=== PATIENT | female | born 1940 | race Caucasian/White ===

== ENCOUNTER 2020-09-23 10:57 | Emergency (ER) | payer MEDICARE, OTHER, SELFPAY ==
[2020-09-23 11:20] VITALS: BP 120/61; PULSE 64; RESP 18; TEMP 36.5; O2SAT 97; BMI 23.3
--- NOTE | 2020-09-23 11:23 | CT_ITS ---
WS: [id number] CT HEAD NONCONTRAST HISTORY: head injury, fall TECHNIQUE: Contiguous axial imaging performed through the brain in 2.5 mm imaging. Bone and soft tiss ue windows. Sagittal and coronal reformats reviewed. All CT scans at [facility] use at ast one of these dose optimization techniques: automated exposure control; mA and/or kV adjustment pe r patient size (includes targeted exams where dose is matched to clinical indication); or iterative r econstruction. DLP: 767.01 mGy.cm COMPARISON: None available. No acute intracranial hemorrhage, midline shift or mass effect. Mild atrophy and mild chronic microvascular ischemic disease. No prior infarcts. Ventricles: Normal size with no hydrocephalus. Paranasal sinuses: As visualized are clear. Mastoid air cells: Well pneumatized. Calvarium and scalp: No skull fracture. There is a small scalp hematoma centered over the RIGHT front al bone. Additional soft tissue thickening over the RIGHT orbit and globe from edema and hemorrhage. CT/CT head wo con* [id number] IMPRESSION: 1. No acute intracranial hemorrhage or edema. 2. RIGHT frontal scalp hematoma with additional edema and hemorrhage over the RIGHT orbit.
--- NOTE | 2020-09-23 11:23 | CT_ITS ---
WS: [id number] CT ORBITS, NONCONTRAST. HISTORY: right, hematoma s/p fall Technique: All CT scans at [facility] use at least one of these dose optimization techniq ues: automated exposure control; mA and/or kV adjustment per patient size (includes targeted exams wh ere dose is matched to clinical indication); or iterative reconstruction. DLP: 400.57 mGy.cm COMPARISON: None available. Nasal bones and zygomatic arches are intact. Armstrong of the sinuses are intact. No air-fluid levels in the visualized sinuses. Armstrong of the orbits are intact. There is mild soft tissue edema and thickenin g centered over the RIGHT orbit and globe and also extending toward the RIGHT frontal scalp. CT/CT orbit BI wo con* [id number] IMPRESSION: 1. No facial bone fractures. 2. Mild soft tissue edema and bleeding centered over the RIGHT orbit/globe and frontal bone.
--- NOTE | 2020-09-23 11:23 | XR_ITS ---
WS: [id number] RIGHT SHOULDER: 3 VIEW(S) TECHNIQUE: Internal and external rotation with Y view. HISTORY: rt shoulder pain, s/p fall COMPARISON: None available. Nondisplaced fracture through the humeral head. Fracture extends through the greater tuberosity but a lso through the femoral neck. No significant displacement. Mild AC joint arthritis. Visualized RIGHT upper thorax is normal. XR/XR shoulder RT min 2V* [id number] IMPRESSION: Nondisplaced acute fracture through the RIGHT femoral neck and head.
--- NOTE | 2020-09-23 11:36 | W.ED.WOUNDLC ---
HPI - Wound/Laceration General: Chief Complaint: Wound/Laceration Stated Complaint: Fall,right shoulder/head lacerations. Time Seen by Provider: 09/23/20 11:18 History of Present Illness: HPI narrative: 80-year-old female patient presents to the emergency department status post fall. She reports was trying to help her up, he started to fall, she tried to break his fall when she fell to the ground. She reports hit her head on the hardwood floors. She denies neck pain, abdominal pain, has ambulated since the fall. She is complaining of right side head pain, right shoulder pain. States may have lost consciousness but not sure. She takes 325 mg aspirin daily. Onset (ago): minute(s) (30) Location: scalp and face Extremity Location: Right: shoulder Place: home Patient tetanus UTD: No Context: accidental Associated symptoms: Reports no associated symptoms; Denies chills, fever(s), nausea or vomiting Review of Systems General: Reports: 10 or more systems reviewed and unremarkable except in HPI and below Const: Denies: fever(s), chills or diaphoresis Eyes: Denies: blurry vision or eye redness ENMT: Denies: throat pain, dental pain or disequilibrium Card: Denies: chest pain, palpitations or irregular heart rhythm Resp: Denies: dyspnea, productive cough, non-productive cough or wheezing GI: Denies: abdominal pain, nausea or vomiting : Denies: difficulty voiding or dysuria Musc: Reports: joint pain (right shoulder); Denies: neck pain or back pain Skin/Breast: Reports: skin tenderness (rt orbit); Denies: rash or pruritus Neuro: Reports: headache(s); Denies: numbness in extremities, weakness in extremities, lack of coordination, difficulty walking, dizziness, confusion, behavioral changes, Slurred speech present or difficulty communicating thoughts Psych: Denies: anxiety or depression Randy/Lymph: Denies: easy bruising PFSH ED PFSH: Medical History (Updated 09/23/20 @ 12:23 by NILS Zhao) Pre-syncope Family History Mother Cancer Sister Cancer Other Heart disease Stroke Social History Smoking and tobacco status: never smoked Physical Exam Const: COMMON NORMALS: no acute distress, patient oriented x3, healthy appearing and alert GENERAL APPEARANCE: cooperative, comfortable and well hydrated HENMT: COMMON NORMALS: normocephalic, Normal external nose present and moist oral mucous membranes HEAD & SCALP: normocephalic NOSE: Normal external nose present Eye: COMMON NORMALS: Equal, round and reactive pupils present and EOMs intact bilaterally VISUAL CHRISTIANSON: No peripheral vision loss and No central vision loss ALIGNMENT: Yes alignment normal PERIORBITAL: periorbital findings abnormal positive right EYELID: eyelid abnormality (periorbital tenderness noted) right upper eyelid swelling and tenderness and right lower eyelid tenderness SCLERA: sclerae normal PUPIL: Yes Equal, round and reactive pupils present, Yes pupil size - right Right pupil size (mm): 4 and Yes pupil size - left Left pupil size (mm): 4 EOM: No EOM abnormal Neck/C-Spine: COMMON NORMALS: full ROM and no lymphadenopathy GENERAL: Yes normal visual inspection and Yes trachea midline CERVICAL SPINE: Yes cervical ROM normal, No cervical ROM abnormal, No pain with cervical ROM, No Cervical spine tenderness, No Paracervical muscle tenderness and No Trapezius muscle tenderness Lymph: LYMPHATIC: no lymphadenopathy noted Chest: COMMONS NORMALS: normal inspection of the chest Resp: COMMON NORMALS: normal respiratory effort and clear to auscultation bilaterally AUSCULTATION: clear to auscultation bilaterally Cardio: COMMON NORMALS: regular rhythm, S1 normal heart sound present, S2 normal heart sound present and Peripheral pulses 2+ throughout RHYTHM: regular rhythm HEART SOUNDS: S1 normal heart sound present and S2 normal heart sound present PERIPHERAL PULSES: Peripheral pulses 2+ throughout GI: COMMON NORMALS: Soft to palpation and non-tender INSPECTION: Yes normal to inspection PALPATION: Yes Soft to palpation : COMMON NORMALS: Yes no CVA tenderness BLADDER/KIDNEY EXAM: Yes no CVA tenderness and No CVA tenderness Back/Pelvis: COMMON NORMALS: no CVA tenderness and thoracic and lumbar spine normal to inspection GENERAL BACK: No CVA tenderness THORACIC SPINE/UPPER BACK: No pain with ROM LUMBAR SPINE/LOWER BACK: No pain with ROM PELVIS: Yes buttocks normal SACROILIAC JOINTS: Yes SI joints normal Extremity: COMMON NORMALS: normal to inspection and capillary refill normal GENERAL: Yes normal exam except as noted RIGHT UPPER EXTREMITY: Yes shoulder joint (pain with palpation anterior) Right shoulder: Yes Right shoulder joint inspection exam (no erythema/edema), Yes palpation, Yes Right shoulder joint ROM exam (limited secondary to pain) and Yes Right shoulder joint neurovascular exam (distally intact) Neuro: COMMON NORMALS: patient oriented x3 and no focal motor deficits SENSORIUM/ORIENTATION: Yes alert Psych: COMMON NORMALS: mental status grossly normal, Normal thought process present and cooperative ACTIVITY/MOTOR BEHAVIOR: Yes appropriate eye contact THOUGHT PROCESS: Normal thought process present Skin: COMMON NORMALS: no rashes or lesions noted and turgor normal GENERAL SKIN EXAM: no rashes or lesions noted and turgor normal TRAUMA: laceration (contused) linear (1 cm superficial laceration to the left lateral eyebrow) and superficial; not actively bleeding, not contaminated and does not involve subcutaneous tissue Procedures Laceration Laceration 1: Site: face Side (If applicable): right Size (cm): 1 Description: linear, clean and other (contused) Depth: simple, single layer Pre-repair: wound explored, irrigated extensively, deep structures intact, extensive debridement and wound margins revised Skin layer closed with: other (skin adhesive) Course Vital Signs: Vital signs: Vital Signs Temperature 97.7 F 09/23/20 11:20 Pulse Rate 71 09/23/20 13:18 Respiratory Rate 18 09/23/20 13:18 Blood Pressure 111/74 09/23/20 13:18 Pulse Oximetry 96 09/23/20 13:18 MDM - Wound/Laceration Lab Data: Labs: Lab Results 09/23/20 09/23/20 Range/Units 12:33 12:33 WBC 7.2 (4.0-10.0) 10^3/ uL RBC 4.35 (4.1-5.3) 10^6/u L Hgb 12.5 (11.5-15.3) g/dL Hct 38.9 (37.0-47.0) % MCV 89.4 (81-99) fL MCH 28.7 (28.0-34.0) pg MCHC 32.1 (30.0-36.0) g/dL RDW 12.3 (12.1-15.1) % Plt Count 161 (130-400) 10^3/c mm MPV 9.7 (7.4-10.4) fL Neut % (Auto) 73.7 % Lymph % (Auto) 17.6 % [place] % (Auto) 6.7 % Eos % (Auto) 1.3 % Baso % (Auto) 0.6 % Neut # (Auto) 5.28 (1.8-7.7) 10^3/u L Lymph # (Auto) 1.3 (0.8-4.8) 10^3/u L [place] # (Auto) 0.5 (0.2-0.9) 10^3/u L Eos # (Auto) 0.1 (0.0-0.8) 10^3/u L Baso # (Auto) 0.0 (0.0-0.1) 10^3/u L Nucleated RBC % (a uto) 0 % Nucleated RBCs # 0.0 /100WBC Sodium 138 (136-145) mmol/L Potassium 3.7 (3.5-5.1) mmol/L Chloride 101 (98-107) mmol/L Carbon Dioxide 26 (22-29) mmol/L Anion Gap 14.7 (5-19) BUN 26 H (8-23) mg/dL Creatinine 1.0 H (0.5-0.9) mg/dL GFR Calculation Not Reportable Glucose 108 (65-115) mg/dL Calculated Osmolal ity 291 (285-295) mOsm/k g Calcium 9.7 (8.5-10.5) mg/dL Total Bilirubin 0.4 (0.15-1.2) mg/dL AST 15 (0-32) U/L ALT 17 (0-33) U/L Alkaline Phosphata se 34 L (35-105) IU/L Total Protein 7.1 (6.6-8.7) g/dL Albumin 4.4 (3.5-5.2) g/dL Globulin 2.7 (1.3-4.6) g/dL Imaging Data^: Xray Ortho: Radiologist's impression: [address] [address] XRay Report Signed Patient: Trish Bravo I Unit #: [id number] : 1940 Age/Sex: 80 / F ADM Date: 09/23/20 Loc: ER Room/Bed: Attending Dr: Ordering Provider/Ordering MD: Terri Campbell Date of Service: 09/23/20 Procedure(s): XR shoulder RT min 2V* [id number] Accession Number(s): [id number] Report Number: [id number] WS: [id number] RIGHT SHOULDER: 3 VIEW(S) TECHNIQUE: Internal and external rotation with Y view. HISTORY: rt shoulder pain, s/p fall COMPARISON: None available. Nondisplaced fracture through the humeral head. Fracture extends through the greater tuberosity but also through the femoral neck. No significant displacement. Mild AC joint arthritis. Visualized RIGHT upper thorax is normal. XR/XR shoulder RT min 2V* [id number] IMPRESSION: Nondisplaced acute fracture through the RIGHT femoral neck and head. Dictated By: Tiffany Dela Cruz DO Signed By: Tiffany Dela Cruz DO Signed Date/Time: 09/23/20 1151 DD/ 1150 CT Head: Radiologist's impression: [place] [address] CT Scan Report Signed Patient: Trish Bravo I Unit #: [id number] : 1940 Age/Sex: 80 / F ADM Date: 09/23/20 Loc: ER Room/Bed: Attending Dr: Ordering Provider/Ordering MD: Terir Campbell Date of Service: 09/23/20 Procedure(s): CT head wo con* [id number] Accession Number(s): [id number] Report Number: [id number] WS: [id number] CT HEAD NONCONTRAST HISTORY: head injury, fall TECHNIQUE: Contiguous axial imaging performed through the brain in 2.5 mm imaging. Bone and soft tissue windows. Sagittal and coronal reformats reviewed. All CT scans at [facility] use at least one of these dose optimization techniques: automated exposure control; mA and/or kV adjustment per patient size (includes targeted exams where dose is matched to clinical indication); or iterative reconstruction. DLP: 767.01 mGy.cm COMPARISON: None available. No acute intracranial hemorrhage, midline shift or mass effect. Mild atrophy and mild chronic microvascular ischemic disease. No prior infarcts. Ventricles: Normal size with no hydrocephalus. Paranasal sinuses: As visualized are clear. Mastoid air cells: Well pneumatized. Calvarium and scalp: No skull fracture. There is a small scalp hematoma centered over the RIGHT frontal bone. Additional soft tissue thickening over the RIGHT orbit and globe from edema and hemorrhage. CT/CT head wo con* [id number] IMPRESSION: 1. No acute intracranial hemorrhage or edema. 2. RIGHT frontal scalp hematoma with additional edema and hemorrhage over the RIGHT orbit. Dictated By: Tiffany Dela Cruz DO Signed By: Tiffany Dela Cruz DO Signed Date/Time: 09/23/20 1216 DD/ [address]: Radiologist's impression: [place] [address] CT Scan Report Signed Patient: Trish Bravo I Unit #: [id number] : 1940 Age/Sex: 80 / F ADM Date: 09/23/20 Loc: ER Room/Bed: Attending Dr: Ordering Provider/Ordering MD: Terri Campbell Date of Service: 09/23/20 Procedure(s): CT orbit BI wo con* [id number] Accession Number(s): [id number] Report Number: [id number] WS: [id number] CT ORBITS, NONCONTRAST. HISTORY: right, hematoma s/p fall Technique: All CT scans at [facility] use at least one of these dose optimization techniques: automated exposure control; mA and/or kV adjustment per patient size (includes targeted exams where dose is matched to clinical indication); or iterative reconstruction. DLP: 400.57 mGy.cm COMPARISON: None available. Nasal bones and zygomatic arches are intact. Armstrong of the sinuses are intact. No air-fluid levels in the visualized sinuses. Armstrong of the orbits are intact. There is mild soft tissue edema and thickening centered over the RIGHT orbit and globe and also extending toward the RIGHT frontal scalp. CT/CT orbit BI wo con* [id number] IMPRESSION: 1. No facial bone fractures. 2. Mild soft tissue edema and bleeding centered over the RIGHT orbit/globe and frontal bone. Dictated By: Tiffany Dela Cruz DO Signed By: Tiffany Dela Cruz DO Signed Date/Time: 09/23/201218 DD/ 15 Discharge Plan Discharge Patient Disposition: Home Clinical Impression: Fall against object Fracture, humerus closed, shaft Qualifiers: Encounter type: initial encounter Fracture morphology: segmental Fracture alignment: nondisplaced Laterality: right Qualified Code(s): S42.364A - Nondisplaced segmental fracture of shaft of humerus, right arm, initial encounter for closed fracture Head injury, acute Qualifiers: Encounter type: initial encounter Qualified Code(s): S09.90XA - Unspecified injury of head, initial encounter Laceration of face Qualifiers: Encounter type: initial encounter Qualified Code(s): S01.81XA - Laceration without foreign body of other part of head, initial encounter Condition: Stable Prescriptions: New hydrocodone-acetaminophen 5-325 mg tablet 1 tab PO Q6H PRN (Reason: pain) Qty: 7 RF: 0 Continued escitalopram oxalate 20 mg tablet 10 mg PO DAILY RF: 0 montelukast 10 mg tablet 10 mg PO DAILY RF: 0 psyllium husk [Metamucil] 0.52 gram capsule 0.52 gm PO DAILY RF: 0 clonazepam 0.5 mg tablet 0.25 mg PO BID RF: 0 gabapentin 100 mg capsule 100 mg PO DAILY RF: 0 atorvastatin 10 mg tablet 10 mg PO DAILY RF: 0 levothyroxine 100 mcg capsule 100 mcg PO DAILY RF: 0 PreserVision AREDS [id number],[id number] tablet 2 tab PO BID RF: 0 epinephrine [EpiPen] 0.3 mg/0.3 mL auto-injector 0.3 mg IM DIRECTED PRNRF: 0 hydrochlorothiazide 25 mg tablet 12.5 mg PO DAILY RF: 0 metoprolol succinate 25 mg tablet extended release 24 hr 37.5 mg PO DAILY Qty: 135 RF: 3 Held aspirin 325 mg tablet 325 mg PO DAILY RF: 0 Hold Instructions: Resume on 09/26/20. Discharge Orders: Discharge Order (Routine); Ordered 09/23/20 Ordered By: Terri Campbell Referrals: Wendy Jorge, [facility] [Primary Care Provider] - Discharge Diet: Usual diet Discharge Activity: Limit activity as instructed Patient Instructions: Diphtheria/Acellular Pertussis/Tetanus Booster Vaccine (Tdap) (Injection), Arm Fracture in Adults (ED), Minor Head Injury (ED), Skin Adhesive Care (ED), Fall Prevention (ED) Activity Restrictions/Additional Instructions: limit use of the right arm referral to information systems specialist placed, you will be contacted with time and date of the appt right arm sling until follow up keep head of your bed elevated while resting to help reduce swelling and pain of the right eyebrow return to the ED if you develop vomiting, nausea, fever, personality change or increased pain of the right arm - return to the ED immediately for the worst headache of your life or if right arm swelling and redness occurs May take APAP PRN pain - take hydrocodone as needed for severe pain Discharge Date/Time: 09/23/20 13:20 Coding Level of Care Code ED Oven Technician for Nahomy Meraz Exam Comprehensive
[2020-09-23] MEDS: acetaminophen 325 mg Tablet 650 MG PO (12:16)
[2020-09-23] MEDS: tetanus-dipt-pertussis 0.5 mL SDV IM (12:18)
[2020-09-23 12:38] LABS: Basophils % 0.6 %; Eosinophils # 0.1 10^3/uL (0.0-0.8); Eosinophils % 1.3 %; Hematocrit 38.9 % (37.0-47.0); Hemoglobin 12.5 g/dL (11.5-15.3); Lymphocytes # 1.3 10^3/uL (0.8-4.8); Lymphocytes % 17.6 %; Mean Corpuscular HGB Conc 32.1 g/dL (30.0-36.0); Mean Corpuscular Hemoglobin 28.7 pg (28.0-34.0); Mean Corpuscular Volume 89.4 fL (81-99); Mean Platelet Volume 9.7 fL (7.4-10.4); Monocytes # 0.5 10^3/uL (0.2-0.9); Monocytes % 6.7 %; Neutrophils # 5.28 10^3/uL (1.8-7.7); Neutrophils % 73.7 %; Nucleated Red Blood Cells % 0 %; Platelet Count 161 10^3/cmm (130-400); Red Blood Count 4.35 10^6/uL (4.1-5.3); Red Cell Distribution Width 12.3 % (12.1-15.1); White Blood Count 7.2 10^3/uL (4.0-10.0)
[2020-09-23 12:59] VITALS: BP 111/83; PULSE 66; RESP 18; O2SAT 95
[2020-09-23 12:59] LABS: Alanine Aminotransferase 17 U/L (0-33); Albumin Level 4.4 g/dL (3.5-5.2); Alkaline Phosphatase 34 IU/L (35-105); Anion Gap 14.7 (5-19); Aspartate Amino Transferase 15 U/L (0-32); Blood Urea Nitrogen 26 mg/dL (8-23); Calcium 9.7 mg/dL (8.5-10.5); Carbon Dioxide 26 mmol/L (22-29); Chloride 101 mmol/L (98-107); Globulin 2.7 g/dL (1.3-4.6); Glucose 108 mg/dL (65-115); Osmolality Calculated 291 mOsm/kg (285-295); Potassium 3.7 mmol/L (3.5-5.1); Sodium 138 mmol/L (136-145); Total Bilirubin 0.4 mg/dL (0.15-1.2); Total Protein 7.1 g/dL (6.6-8.7)
[2020-09-23 13:01] LABS: Creatinine Clr Calc Pharmacy 40.8103
--- NOTE | 2020-09-23 13:11 | DCPLANNER ---
accounting systems manager had message to schedule a follow up appointment for patient with ortho. accounting systems manager called the ortho clinic, spoke with Pat, gave clinic patients information. accounting systems manager was told that patients information would be printed and reviewed. Clinic will call patient with appointment information.
[2020-09-23 13:18] VITALS: BP 111/74; PULSE 71; RESP 18; O2SAT 96
--- NOTE | 2020-09-24 08:03 | DCPLANNER ---
Patient has a follow up appointment scheduled for Tuesday, September 25 at 11:[address] Perry at ortho. Clinic will call patient with appointment information.
--- NOTE | 2020-10-28 13:09 | DCPLANNER ---
Patient had a follow up appointment scheduled for 09.25.20 with ortho - patient did attend appointment.
== END 2020-09-23 13:20 | disposition home or self-care (01) ==
PROVIDERS: Emergency Provider Nurse Practitioner Family; PCP Nurse Practitioner
DX: S42.36 Segmental fracture of shaft of humerus (principal); S09.8XXA Other specified injuries of head, initial encounter; S01.81XA Laceration without foreign body of other part of head, initial encounter; W18.39XA Other fall on same level, initial encounter; Z23 Encounter for immunization
CPT/HCPCS: 12011; 12345; 70450; 70480; 73030; 80053; 85025; 90471; 90715; 99281; 99283

== ENCOUNTER → 2022-03-31 12:00 | Outpatient (BNVA) | payer MEDICARE, OTHER, SELFPAY | PROVIDERS: PCP Nurse Practitioner; Visit Provider Internal Medicine Cardiovascular Disease | DX: I10 Essential (primary) hypertension (principal); R55 Syncope and collapse; R00.2 Palpitations | CPT/HCPCS: 99214 ==

== ENCOUNTER → 2023-05-16 14:07 | Outpatient (BNVA) | payer MEDICARE, OTHER, SELFPAY | PROVIDERS: PCP Nurse Practitioner; Referring Provider Family Medicine; Visit Provider Dermatology | DX: L82.1 Other seborrheic keratosis (principal); D23.5 Other benign neoplasm of skin of trunk; L30.4 Erythema intertrigo; S30.861A Insect bite (nonvenomous) of abdominal wall, initial encounter; W57.XXXA Bitten or stung by nonvenomous insect and other nonvenomous arthropods, initial encounter | CPT/HCPCS: 99204 ==

== ENCOUNTER → 2025-03-19 13:51 | Outpatient (BNVA) | payer MEDICARE, OTHER, SELFPAY | PROVIDERS: PCP Nurse Practitioner; Visit Provider Podiatrist Foot & Ankle Surgery | DX: M79.671 Pain in right foot (principal); I73.9 Peripheral vascular disease, unspecified; M79.672 Pain in left foot; M1A.0710 Idiopathic chronic gout, right ankle and foot, without tophus (tophi); L84 Corns and callosities | CPT/HCPCS: 73630; 99204 ==

== ENCOUNTER 2025-10-06 17:17 | Emergency (ER) | payer MEDICARE, OTHER, SELFPAY ==
--- NOTE | 2025-10-06 17:25 | ECG_ITS ---
[facility]25[facility]06 Pat Name: Trish Bravo Department: Room: Gender: Female Climatology Teacher: : 1940 Requested By: Elaine Lopez Order Number: [id number] Dunn MD: Keith Gross M.D. Measurements Intervals [place] Rate: 61 P: 60 OK: 161 QRS: 47 QRSD: 85 T: 62 QT: 431 QTc: 434 Interpretive Statements SINUS RHYTHM Compared to ECG 06/01/2018 19:49:40 No significant changes Electronically Signed On 10-06-2025 18:10:24 ANESTHESIOLOGISTS' ASSISTANT by Keith Gross M.D. [id number]
--- NOTE | 2025-10-06 17:25 | XRR_ITS ---
PROCEDURE INFORMATION: Exam: XR Chest Exam date and time: 10/06/2025 5:30 PM Age: 85 years old Clinical indication: Other: HTN; Additional info: Hypertension TECHNIQUE: Imaging protocol: Radiologic exam of the chest. Views: 1 view. COMPARISON: CR XR shoulder RT min 2V* [id number] 09/23/2020 11:26 AM FINDINGS: Lungs: A few scattered nonspecific although chronic appearing pulmonary strands. Poor visualization of the left costophrenic angle, nonspecific. Pleural spaces: Unremarkable. No pleural effusion. No pneumothorax. Heart/Mediastinum: Unremarkable. No cardiomegaly. Vasculature: Aortic atherosclerosis. Bones/joints: Unremarkable. XR/XR chest 1V portable [id number] IMPRESSION: No definite acute infiltrate or effusion.
[2025-10-06 17:32] VITALS: BP 193/81; PULSE 63; TEMP 36.5; O2SAT 95
[2025-10-06 17:36] LABS: Hematocrit 44.6 % (36-47); Hemoglobin 15.10 g/dL (11.27-16.99); Mean Corpuscular HGB Conc 33.9 g/dL (30-55); Mean Corpuscular Hemoglobin 29.4 pg (27-33); Mean Corpuscular Volume 86.8 fl (85-98); Nucleated Red Blood Cells % 0 %; Platelet Count 190 10^3/cmm (157-399); Red Blood Count 5.14 10^6/uL (3.85-5.65); White Blood Count 6.53 10^3/uL (3.29-11.43)
--- NOTE | 2025-10-06 17:44 | W.ED.GENADLT ---
HPI - General Adult General: Chief complaint: General Medical Stated complaint: high bp Time Seen by Provider: 10/06/25 17:21 History of Present Illness: 85-year-old female with a history of hypertension, hypothyroidism, hyperlipidemia, obstructive sleep apnea and type 2 diabetes who presents to the emergency room with hypertension. She had gone to a football game and was outside for a very long time. Family is concerned she might of gotten dehydrated during this time. She developed a headache afterwards. No fevers. No altered mental status. No focal motor deficits. No chest pain. No abdominal pain. No dizziness. No dysuria. Related Data Home Medications ?Medication ?Instructions ?Recorded ?Confirmed aspirin 325 mg tablet 325 mg PO DAILY 02/20/20 03/19/25 Held on 09/23/20. Instructions: Resume on 09/26/20. atorvastatin 10 mg tablet 10 mg PO DAILY 02/20/20 03/19/25 epinephrine 0.3 mg/0.3 mL 0.3 mg IM DIRECTED PRN 02/20/20 03/19/25 injection, auto-injector (EpiPen) gabapentin 100 mg capsule 100 mg PO DAILY 02/20/20 03/19/25 levothyroxine 100 mcg capsule 100 mcg PO DAILY 02/20/20 03/19/25 vitamins A,C,P-sdxw-shlskp 2,148 2 tab PO BID 02/20/20 03/19/25 mcg-113 mg-45 mg-17.4 mg tablet (PreserVision AREDS) escitalopram oxalate 20 mg tablet 10 mg PO DAILY 02/21/20 03/19/25 psyllium husk 0.52 gram capsule 0.52 gm PO DAILY 02/21/20 03/19/25 (Metamucil) clonazepam 0.5 mg tablet 0.25 mg PO DAILY 03/31/22 03/19/25 hydrochlorothiazide 25 mg tablet 25 mg PO DAILY 03/19/25 03/19/25 Previous Rx's ?Medication ?Instructions ?Recorded losartan 50 mg tablet 50 mg PO .qpm #30 tabs 04/01/22 metoprolol succinate 25 mg 25 mg PO DAILY #90 tabs 04/01/22 tablet,extended release 24 hr diclofenac sodium 1 % topical gel 4 g topical QID #100 grams 03/19/25 clonidine HCl 0.1 mg tablet 0.1 mg PO DAILY PRN hypertension 10/06/25 #20 tabs Allergies Allergy/AdvReac Type Severity Reaction Status Date / Time amlodipine (From [facility] [place]) Allergy Unknown Unknown Verified 10/06/25 17:34 bee venom protein (honey bee) Allergy Unknown Unknown Verified 10/06/25 17:34 Penicillins Allergy Unknown Unknown Verified 10/06/25 17:34 Review of Systems Narrative: Constitutional symptoms: Negative except as documented in HPI. Skin symptoms: Negative except as documented in HPI. Eye symptoms: Negative except as documented in HPI. ENMT symptoms: Negative except as documented in HPI. Respiratory symptoms: Negative except as documented in HPI. Cardiovascular symptoms: Negative except as documented in HPI. Gastrointestinal symptoms: Negative except as documented in HPI. Genitourinary symptoms: Negative except as documented in HPI. Musculoskeletal symptoms: Negative except as documented in HPI. Neurologic symptoms: Negative except as documented in HPI. Psychiatric symptoms: Negative except as documented in HPI. Endocrine symptoms: Negative except as documented in HPI. PFS ED PFSH: Medical History (Updated 10/06/25 @ 18:29 by Elaine Arevalo MD) Hypothyroidism HTN (hypertension) with goal to be determined Pre-syncope Family History Mother Cancer Lung disease TB Sister Cancer Father CAD (coronary artery disease) 70 Other Heart disease Denies family history of Diabetes Clotting disorder Dementia Chronic kidney disease (CKD) Suicide Anesthesia complication Bleeding disorder Stroke Social History Smoking and tobacco/nicotine status: never used tobacco/nicotine Physical Exam Narrative: EXAM NARRATIVE: General: Alert, no acute distress. Skin: Warm, dry. Head: Normocephalic, atraumatic. Neck: Supple, trachea midline. Eye: Extraocular movements are intact. Ears, nose, mouth and throat: mucosa moist. Cardiovascular: Regular, Normal peripheral perfusion. Respiratory: Lungs are clear to auscultation, respirations are non-labored, breath sounds are equal, Symmetrical chest wall expansion. Gastrointestinal: Soft, Nontender, Non distended Musculoskeletal: Normal ROM, no deformity. Neurological: Alert and oriented, No focal neurological deficit observed. Psychiatric: Cooperative, appropriate mood & affect. Course Vital Signs: Vital signs: Vital Signs Temperature 97.7 F 10/06/25 17:32 Pulse Rate 54 L 11/10/25 18:02 Respiratory Rate 22 H 10/06/25 18:02 Blood Pressure 197/88 10/06/25 18:15 Pulse Oximetry 96 10/06/25 18:02 Oxygen Delivery Me thod Room Air 10/06/25 17:32 MDM - General Adult Medical Decision Making Medical decision making: Patient's reason for coming to the emergency room hypertension and headache Social determinants: Retired. Has a daughter who seems to be very involved in her care I reviewed the patient's medical record. 65-year-old female with a history of hypertension, hypothyroidism, hyperlipidemia, obstructive sleep apnea and type 2 diabetes I reviewed the patient's current home meds Patient has listed on her home medication written out list that she is on metoprolol and hydrochlorothiazide. Alternate historians: Daughter provides a lot of the history as the patient is very hard of hearing Differential diagnosis including but not limited to and based on the above HPI, review of systems and physical exam: Patient presents with hypertension: Essential hypertension. Stroke. acute coronary syndrome. kidney failure. congestive heart failure. anxiety. Orders placed to evaluate differential diagnosis based on the above differential, HPI and physical exam EKG: Time 1821. Rate 71. Normal sinus rhythm, nonspecific ST changes, no ectopy, normal UT & QRS intervals, This was reviewed and interpreted by myself the ER physician at 1825 Chest x-ray: No acute process. No infiltrate. No pneumothorax. This was reviewed and interpreted by myself the emergency room physician. I also reviewed the radiology report. Lab Review: Laboratory results were reviewed and interpreted by myself the emergency room physician. No leukocytosis. No anemia. Mild worsening in her renal function with a BUN of 27 and a creatinine of 1.2. She is usually around 1.0-1.2. Urinalysis is negative for infection. Assessment of risk: Level of risk: Moderate. Patient has multiple comorbidities. Hospitalization considerations: Patient is relatively asymptomatic at this time I am not considering admission. She does need to follow-up with her PCP as soon as possible to consider medication changes. Reexamination: Patient remained stable. No increased work of breathing. No altered mental status. No focal motor deficits. I discussed findings with the patient and with daughter. She is concerned she may be dehydrated and I do not disagree so some fluids are given. Assessment and plan: Hypertension Dehydration ?P.o. clonidine, IV fluids and IV hydralazine - Discharged home - Discussed plan with patient. Answered any questions. - Evaluation and treatment of this problem were appropriate in the emergency setting. Lab Data 10/06/25 17:30 10/06/25 17:30 Radiology Impressions Chest X-Ray 10/06/25 IMPRESSION: No definite acute infiltrate or effusion. Laboratory Results WBC 6.53 10^3/uL (3.29-11.43) 10/06/25 17: RBC 5.14 10^6/uL (3.85-5.65) 10/06/25 17: Hgb 15.10 g/dL (11.27-16.99) 10/06/25 17: Hct 44.6 % (36-47) 10/06/25 17: MCV 86.8 fl (85-98) 10/06/25 17:30 MCH 29.4 pg (27-33) 10/06/25 17: MCHC 33.9 g/dL (30-55) 10/06/25 17: RDW 12.3 % (12.1-15.1) 10/06/25 17: Plt Count 190 10^3/cmm (157-399) 10/06/25 17: MPV 9.5 fL (7.4-10.4) 10/06/25 17:30 Neut % (Auto) 59.7 % 10/06/25 17:30 Lymph % (Auto) 29.7 % 10/06/25 17:30 [place] % (Auto) 7.5 % 10/06/25 17: Eos % (Auto) 2.3 % 10/06/25 17: Baso % (Auto) 0.6 % 10/06/25 17:30 Neut # (Auto) 3.90 10^3/uL (1.8-7.7) 10/06/25 17: Lymph # (Auto) 1.9 10^3/uL (0.8-4.8) 10/06/25 17:30 [place] # (Auto) 0.5 10^3/uL (0.2-0.9) 10/06/25 17:30 Eos # (Auto) 0.2 10^3/uL (0.0-0.8) 10/06/25 17:30 Baso # (Auto) 0.0 10^3/uL (0.0-0.1) 10/06/25 17:30 Nucleated RBC % (auto) 0 % 10/06/25 17:30 Nucleated RBCs # 0.0 /100WBC 10/06/25 17:30 PT 13.10 SECONDS (12.1-14.9) 10/06/25 17:30 INR 0.92 (0.8-1.2) 10/06/25 17:30 APTT 27.1 SECONDS (23.9-36.7) 10/06/25 17:30 Sodium 136 mmol/L (136-145) 10/06/25 17:30 Potassium 3.9 mmol/L (3.5-5.1) 10/06/25 17:30 Chloride 100 mmol/L (98-107) 10/06/25 17:30 Carbon Dioxide 23 mmol/L (22-29) 10/06/25 17:30 Anion Gap 16.9 (5-19) 10/06/25 17:30 BUN 27 mg/dL (8-23) H 10/06/25 17:30 Creatinine 1.2 mg/dL (0.5-0.9) H 10/06/25 17:30 GFR Calculation Not Reportable 10/06/25 17:30 Glucose 96 mg/dL (65-115) 10/06/25 17:30 Calculated Osmolality 287 mOsm/kg (285-295) 10/06/25 17:30 Calcium 10.1 mg/dL (8.5-10.5) 10/06/25 17:30 Total Bilirubin 0.5 mg/dL (0.15-1.2) 10/06/25 17:30 AST 13 U/L (0-32) 10/06/25 17:30 ALT 12 U/L (0-33) 10/06/25 17:30 Alkaline Phosphatase 33 U/L (35-105) L 10/06/25 17:30 Troponin T Baseline 8 ng/L (0-10) 10/06/25 17:30 NT-Pro-B Natriuret Pep 673 pg/mL (0-450) H 10/06/25 17:30 Total Protein 7.6 g/dL (6.6-8.7) 10/06/25 17:30 Albumin 4.8 g/dL (3.5-5.2) 10/06/25 17:30 Globulin 2.8 g/dL (1.3-4.6) 10/06/25 17:30 Lipase 25 U/L (13-60) 10/06/25 17:30 Urine Color Yellow (Yellow) 10/06/25 17:55 Urine Appearance Clear (CLEAR) 10/06/25 17:55 Urine pH 6.0 (5-7) 10/06/25 17:55 Ur Specific [place] 1.009 (1.005-1.030) 10/06/25 17:55 Urine Protein Negative (Negative) 10/06/25 17:55 Urine Glucose (UA) Negative (Normal) 10/06/25 17:55 Urine Ketones Negative (Negative) 10/06/25 17:55 Urine Blood Negative (Negative) 10/06/25 17:55 Urine Nitrate Negative (Negative) 10/06/25 17:55 Urine Bilirubin Negative (Negative) 10/06/25 17:55 Urine Urobilinogen 0.2 mg/dL (Negative) 10/06/25 17:55 Ur Leukocyte Esterase Trace (Negative) A 10/06/25 17:55 Urine RBC 0-2 /hpf (0-2) 10/06/25 17:55 Urine WBC 0-5 /hpf (0-5) 10/06/25 17:55 Ur Squamous Epith Cells 0-5 /hpf (0-5) 10/06/25 17:55 Amorphous Sediment Not Reportable 10/06/25 17:55 Urine Bacteria None seen /hpf (NONE) 10/06/25 17:55 Hyaline Casts 0-4 /lpf H 10/06/25 17:55 All radiology interpretation(s) finalized by discharge Discharge Plan Discharge Patient Disposition: Home Clinical Impression: Hypertension, Dehydration Condition: Stable Prescriptions: New clonidine HCl 0.1 mg tablet 0.1 mg PO DAILY PRN (Reason: hypertension) Qty: 20 0RF Rx Instructions: For Systolic >185 diastolic >100. If you are needing this more than once a day you need to follow with your primary care provider No Action escitalopram oxalate 20 mg tablet 10 mg PO DAILY psyllium husk [Metamucil] 0.52 gram capsule 0.52 gm PO DAILY gabapentin 100 mg capsule 100 mg PO DAILY aspirin 325 mg tablet 325 mg PO DAILY atorvastatin 10 mg tablet 10 mg PO DAILY levothyroxine 100 mcg capsule 100 mcg PO DAILY PreserVision AREDS 7,160-113-100 [id number] tablet 2 tab PO BID epinephrine [EpiPen] 0.3 mg/0.3 mL auto-injector 0.3 mg IM DIRECTED PRN clonazepam 0.5 mg tablet 0.25 mg PO DAILY hydrochlorothiazide 25 mg tablet 25 mg PO DAILY diclofenac sodium 1 % gel 4 g topical QID Qty: 100 2RF Rx Instructions: apply to single knee, ankle, foot; for foot includes sole/toes/top of foot losartan 50 mg tablet 50 mg PO .qpm Qty: 30 5RF metoprolol succinate 25 mg tablet extended release 24 hr 25 mg PO DAILY Qty: 90 3RF Discharge Orders: Discharge ED (Routine); Ordered 10/06/25 Ordered By: Elaine Arevalo Referrals: Gene Johnson MD [Primary Care Provider, Family Practice] Discharge Diet: Usual diet Discharge Activity: Increase activity as tolerated Patient Instructions: Hypertension (ED), Opioid Safety, Pain Management, Patient Portal & Fifi Instructions Activity Restrictions/Additional Instructions: Thank you for choosing [facility] for your healthcare needs today. You have been screened and evaluated and felt safe for discharge. Health conditions do change or evolve sometimes and as such it is important that you follow up with your Primary Doctor to be re checked, 3-5 days is a general good time frame for follow up. You are always welcome to return to the ED for re assessment if your symptoms are worsening or you have new concerns Print Language: [place] Coding Level of Care Code ED Systems Requirements Planner for Nahomy Meraz
[2025-10-06 17:51] LABS: INR 0.92 (0.8-1.2); Partial Thromboplastin Time 27.1 SECONDS (23.9-36.7); Prothrombin Time 13.10 SECONDS (12.1-14.9)
[2025-10-06 18:01] LABS: Troponin(5th) Baseline 8 ng/L (0-10)
[2025-10-06 18:02] VITALS: BP 200/86; PULSE 54; RESP 22; O2SAT 96
[2025-10-06 18:06] LABS: Glucose Urine UA Negative (Normal); Nitrate Urine Negative (Negative); Specific Gravity, Urine 1.009 (1.005-1.030)
[2025-10-06 18:08] LABS: Alanine Aminotransferase 12 U/L (0-33); Albumin Level 4.8 g/dL (3.5-5.2); Alkaline Phosphatase 33 U/L (35-105); Blood Urea Nitrogen 27 mg/dL (8-23); Calcium 10.1 mg/dL (8.5-10.5); Carbon Dioxide 23 mmol/L (22-29); Chloride 100 mmol/L (98-107); Creatinine Clr Calc Pharmacy 32.4959; Globulin 2.8 g/dL (1.3-4.6); Glucose 96 mg/dL (65-115); Lipase 25 U/L (13-60); NT Pro B Type Natriuretic Pept 673 pg/mL (0-450); Osmolality Calculated 287 mOsm/kg (285-295); Sodium 136 mmol/L (136-145); Total Protein 7.6 g/dL (6.6-8.7)
[2025-10-06 18:11] LABS: Anion Gap 16.9 (5-19); Aspartate Amino Transferase 13 U/L (0-32); Potassium 3.9 mmol/L (3.5-5.1)
[2025-10-06 18:15] VITALS: BP 197/88
[2025-10-06] MEDS: hyDRALAzine 20 mg/mL INJ 1 mL 10 MG IVP (18:47)
[2025-10-06 19:14] VITALS: BP 196/69; PULSE 60; RESP 17; O2SAT 97
== END 2025-10-06 19:15 | disposition home or self-care (01) ==
PROVIDERS: Emergency Provider Emergency Medicine; PCP Family Medicine
DX: I10 Essential (primary) hypertension (principal); E86.0 Dehydration; Z79.82 Long term (current) use of aspirin; E78.5 Hyperlipidemia, unspecified; E11.9 Type 2 diabetes mellitus without complications
CPT/HCPCS: 71045; 80053; 81001; 83690; 83880; 84484; 85025; 85610; 85730; 93005; 96374; 99285; J0360; J7040; J9999